=== PATIENT | female | born 1990 | race African-American/Black ===

== ENCOUNTER 2024-03-21 15:12 | Emergency (ER) | payer SELFPAY ==
[~2024-03-21] VITALS: Ht 167.6 cm; Wt 95.0 kg
[2024-03-21 15:17] VITALS: O2SAT 100
[2024-03-21 15:24] VITALS: BP 129/64; PULSE 84; RESP 18; TEMP 98.4; O2SAT 98
[2024-03-21] MEDS: PREDNISONE 20MG TABLET PO ONE (15:55)
[2024-03-21] MEDS: CETIRIZINE 10MG TABLET PO SCH (16:00)
== END 2024-03-21 17:40 | disposition home or self-care (01) ==
LOC: ER 15:12
DX: T78.40XA Allergy, unspecified, initial encounter (principal); X58.XXXA Exposure to other specified factors, initial encounter
CPT/HCPCS: 99283; 81025; J7512